=== PATIENT | male | born 1965 | race African-American/Black ===

== ENCOUNTER 2024-10-24 10:25 | Outpatient (REF) | payer MEDICAID, SELFPAY ==
--- OUTSIDE RECORDS SUMMARY | 2024-10-24 10:53 | XMS_ITS | Clinical Summary ---
Author Organization [facility] Address [address] [place] [address] Care Team Providers Care Software Quality Assurance Analyst Name Role Phone Evie Connell NP Primary Care Provider [phone] Source Comments PLEASE NOTE, if this patient is a minor, it may be UNLAWFUL to discuss sensitive information that is contained in these records (such as FAMILY PLANNING, MENTAL HEALTH or SUBSTANCE ABUSE) with the minor patient's parent or other person without the patient's specific authorization.[facility] Allergies No known active allergies Medications lisinopriL 40 mg tabletIndication s:Hypertension, unspecified type Take 1 Tablet by mouth once daily 90 Tablet 1 4 Active atorvastatin (LIPITOR) 20 mg tabletIndication s:Hypercholester olemia Take 1 Tablet by mouth nightly at bedtime 90 Tablet 1 4 Active amLODIPine (NORVASC) 2.5 mg tabletIndication s:Hypertension, unspecified type Take 1 Tablet by mouth once daily 90 Tablet 1 4 Active acetaminophen (TYLENOL) 500 mg tabletIndication s:Chronic pain of left knee Take 1 Tablet by mouth 3 (three) times daily as needed for pain 40 Tablet 3 4 Active diclofenac sodium (VOLTAREN) 1 % gelIndications:C hronic pain of left knee Apply 2 g topically 2 (two) times daily as needed for pain 100 g 3 4 Active doxycycline (VIBRA-TABS) 100 mg tabletIndication s:Chlamydia infection Take 1 Tablet by mouth 2 (two) times daily 14 Tablet 4 Active Active Problems No known active problems Immunizations Immunization Administration Dates Next Due Hep B, Adult/Adol ([id number]/RECOMBIVAX-AD ULT) 01/02/2024 INFLUENZA, SEASONAL, INJECTABLE, PRESERVATIVE FR EE 01/02/2024 TDAP 11/26/2023 Social History Tobacco Use Types Packs/Day Years Used Date Smoking Tobacco: Never Smokeless Tobacco: Never Tobacco Cessation:Counseling Given: Not Answered Alcohol Use Standard Drinks/Week Comments Never 0 (1 standard drink = 0.6 oz pur e alcohol) Social Connections Answer Date Recorded Connectedness 0 12/25/2023 Financial Resource Strain Answer Date R ecorded Financial Resource Strain 0 2023 Stress Answer Date Recorded Stress 0 11/06/2023 Physical Activity Answer Date Recorded Physical Activity 0 11/06/2023 Food Insecurity Answer Date Recorded Food 0 01/03/2024 Transportation Needs Answer Date Record ed Transportation 0 11/06/2023 Housing Stability Answer Date Recorded Housing 0 11/06/2023 Safety and Environment Answer Date Phillip rded Safety 0 11/06/2023 Utilities Answer Date Recorded Utilities 0 11/06/2023 Employment Answer Date Recorded Stress 0 12/25/2023 Sex and Gender Information Value Date Recorded Sex Assigned at Male 11/06/2023 11:00 AM PDT Legal Sex Male 10:27 AM PDT Gender Identity Male 11/06/2023 11:00 AM PDT Sexual Orientation Straight 11/06/2023 11 :00 AM PDT Last Filed Vital Signs Vital Sign Reading Time Taken Comments Blood Pressure 171/94 01/16/2024 2:49 PM EDT Pulse 85 01/16/2024 2:49 PM EDT Temperature 36.6 C (97.9 F) 01/02/2024 12:06 PM EDT Respiratory Rate - - Oxygen Saturation 96% 01/02/2024 12:06 PM EDT Inhaled Oxygen Concentration - - Weight 88.5 kg (195 lb 3.2 oz) 01/16/2024 2:49 P M EDT Height - - Body Mass Index - - Plan of Treatment Health Maintenance Due Date Last Done Comments Anxiety Screening 1965 Dental Perio Charting 1965 Hepatitis B Screening 1965 CT Colonography 2010 Colonoscopy 2010 Flexible Sigmoidoscopy 2010 Imm-Pneumococcal 50+ (1 of 1 - PCV) 2015 Imm-Zoster, Recombinant (1 of 2) 2015 [id number] (1 - season) 2023 Imm-Hepatitis B (2 of 3 - 19 + 3-dose series) 01/30/2024 01/02/2024 Alcohol and Drug Screen 04/09/2024 01/02/20 24, 11/26/2023, 11/26/2023 Depression Annual Screen 04/09/2024 01/02/2024 Diabetes Screening 11/25/2024 11/26/2023, 11/26/2023 Lipid Screening 11/25/2024 11/26/2023 Dental BW 12/01/2024 11/30/2023 Dental Examination 12/01/2024 11/30/2023 Imm-Influenza (#1) 2024 01/02/2024 Annual Wellness (Adult): Ind icated (All Coverage) 01/01/2025 01/02/2024 Tobacco Screening 01/01/2025 01/02/2024, 11/26/2023 Dental Prophy 01/08/2025 01/07/2024 FIT/gFOBT 01/15/2025 01/16/2024 Colorectal Cancer Screening 01/15/2027 Fecal DNA 01/15/2027 01/16/2024 Dental FMX/Pano 12/01/2028 11/30/2023 Imm-DTaP/Tdap/Td (2 - Td or Tdap) 11/25/2033 024 HIV Screening Completed 11/26/2023 Hepatitis C Screening Completed 11/26/2023 Procedures Procedure Name Priority Date/Time Associated Diagnosis Comments COLOGUARD Routine 01/16/2024 2:00 PM EDT Screening for colon cancer PROPHYLAXIS - ADULT Routine 01/07/2024 1 0:00 AM EDT Encounter for dental examination PANORAMIC RADIOGRAPHIC IMAGE Routine 11/30/2023 9:30 AM EDT Caries BITEWINGS - FOUR RADIOGRAPHIC IMAGES Routine 11/30/2023 9:30 AM EDT [facility] COMP ORAL EVALUATION - NEW/ESTABLISHED PATIENT Routine 11/30/2023 9:30 AM EDT Caries HIV 1/2 AG & AB W/RFLX (4TH GEN) Routine 11/26/2023 12:28 PM EDT Encounter for screening for HIV HEPATITIS C AB W/RFLX HCV RNA, QT, RT PCR Routine 11/26/2023 12:28 PM EDT Need for hepatitis C screening test COMPREHENSIVE METABOLIC PANEL Routine 11/26/2023 12:28 PM EDT Hypertension, unspecified type LIPID PANEL Routine 11/26/2023 12:28 PM EDT Hypercholesterolemi a from Last 3 Months or Most Recently Relevant to Health Maintenance Results * COLOGUARD (01/16/2024 2:00 PM EDT) COLOGUARD RESULT REPORTABLE Negative Negative [facility] (CLIA #:[id number]) Comment: NEGATIVE TEST RESULT. A negative Cologuard result indicates a low likelihood that a colorectal cancer (CRC) or advanced adenoma (adenomatous polyps with more advanced pre- malignant features) is present. The chance that a person with a negative Cologuard test has a colorectal cancer is less than 1 in 1500 (negative predictive value >99.9%) or has an advanced adenoma is less than 5.3% (negative predictive value 94.7%). These data are based on a prospective cross-sectional study of 10,000 individuals at average risk for colorectal cancer who were screened with both Cologuard and colonoscopy. (Edilia Cazares et al, N Engl J Med 2014;370(14):6368-9032) The normal value (reference range) for this assay is negative. COLOGUARD RE-SCREENING RECOMMENDATION: Periodic colorectal cancer screening is an important part of preventive healthcare for asymptomatic individuals at average risk for colorectal cancer. Following a negative Cologuard result, the [place] Cancer Society and U.S. Multi-Society Task Force screening guidelines recommend a Cologuard re-screening interval of 3 years. References: [place] [employer] Guideline for Colorectal Cancer Screening: https://www.cancer.org/cancer/bepud-pwjdmz-uitiwf/xwztbdsgr-grygxfdhr-fkfhykf/ac s-rec zachary ns.html.; Gonzalez MONTENEGRO, Belle BILLINGSLEYKlarissa, Colorectal Cancer Screening: Recommendations for Physicians and Patients from the U.S. Multi-Society Task Force on Colorectal Cancer Screening , Am J Gastroenterology 2017; 112:6318-9276. TEST DESCRIPTION: Composite algorithmic analysis of stool DNA-biomarkers with hemoglobin immunoassay. Quantitative values of individual biomarkers are not reportable and are not associated with individual biomarker result reference ranges. Cologuard is intended for colorectal cancer screening of adults of either sex, 45 years or older, who are at average-risk for colorectal cancer (CRC). Cologuard has been approved for use by the U.S. FDA. The performance of Cologuard was established in a cross sectional study of average- risk adults aged 50-84. Cologuard performance in patients ages 45 to 49 years was estimated by sub-group analysis of near-age groups. Colonoscopies performed for a positive result may find as the most clinically significant lesion: colorectal cancer [4.0%], advanced adenoma (including sessile serrated polyps greater than or equal to 1cm diameter) [20%] or non- advanced adenoma [31%]; or no colorectal neoplasia [45%]. These estimates are derived from a prospective cross-sectional screening study of 10,000 individuals at average risk for colorectal cancer who were screened with both Cologuard and colonoscopy. (Edilia Cazares et al, N Engl J Med 2014;370(14):6314-5583.) Cologuard may produce a false negative or false positive result (no colorectal cancer or precancerous polyp present at colonoscopy follow up). A negative Cologuard test result does not guarantee the absence of CRC or advanced adenoma (pre-cancer). The current Cologuard screening interval is every 3 years. ([place] [employer] and U.S. Multi-Society Task Force). Cologuard performance data in a 10,000 patient pivotal study using colonoscopy as the reference method can be accessed at the following location: www.[employer]/results. Additional description of the Cologuard test process, warnings and precautions can be found at www.[employer].com. Stool Stool specimen / Unknown 01/16/2024 2:00 PM EDT 01/17/2024 11:20 AM EDT Evie Connell NP LAB BODY FLUIDS AND STOOL S AMBULATORY Final Result Performing Organization Address [facility]/ZIP Co de Phone Number [employer] [address] CLIA [id number] [place] [address], [facility] (CLIA #:[id number]) [address] [place] [id number] * HEPATITIS C AB W/RFLX HCV RNA, ([id number]) Recommended for screening (11/26/2023 12:28 PM EDT) HEPATITIS C ANTIBODY NON-REACT SILVIA NON-REACT SILVIA 11/26/2023 11:44 PM EDT [facility] Blood Blood / Unknown 11/26/2023 1 2:28 PM EDT 11/26/2023 9:41 PM EDT Narrative [facility] - 11/26/2023 11:46 PM EDT FASTING:NO . HCV antibody was non-reactive. There is no laboratory evidence of HCV infection. . In most cases, no further action is required. However, if recent HCV exposure is suspected, a test for HCV RNA (test code 09973) is suggested. . For additional information please refer to http://education.[employer]/faq/BAH13u1 (This link is being provided for informational/ educational purposes only.) . Evie Connell NP LAB - BLOOD DRAW Final Re sult Performing Organization Address [facility] Co de Phone Number [facility] [address] [place] [address], [facility] [address] [phone] * HIV Ag/Ab 4th Gen (For Screening) (11/26/2023 12:28 PM EDT) HIV AG/AB, 4TH GEN NON-REACT SILVIA NON-REACT SILVIA 11/26/2023 11:44 PM EDT [facility] Blood Blood / Unknown 11/26/2023 1 2:28 PM EDT 11/26/2023 9:43 PM EDT Narrative [facility] [employer] - 11/26/2023 11:46 PM EDT FASTING:NO HIV-1 antigen and HIV-1/HIV-2 antibodies were not detected. There is no laboratory evidence of HIV infection. . PLEASE NOTE: This information has been disclosed to you from records whose confidentiality may be protected by state law. If your state requires such protection, then the state law prohibits you from making any further disclosure of the information without the specific written consent of the person to whom it pertains, or as otherwise permitted by law. A general authorization for the release of medical or other information is NOT sufficient for this purpose. . For additional information please refer to http://education.Antidot/faq/BWF049 (This link is being provided for informational/ educational purposes only.) . . The performance of this assay has not been clinically validated in patients less than 2 years old. . Evie Connell NP LAB - BLOOD DRAW Final Re sult [facility] [address] [place] [address], [facility] [address] [address] * (ABNORMAL) LIPID PANEL (11/26/2023 12:28 PM EDT) [facility] Signature CHOLESTEROL, TOTAL 127 <200 mg/dL 11/26/2023 10:52 PM EDT [facility] HDL CHOLESTEROL 34(L) > OR = 40 mg/dL 11/26/2023 10:52 PM EDT [facility] TRIGLYCERIDES 149 <150 mg/dL 11/26/2023 10:52 PM EDT [facility] LDL-CHOLESTEROL 70 mg/dL (calc) 11/26/2023 10:52 PM EDT [facility] CHOL/HDLC RATIO 3.7 <5.0 (calc) 11/26/2023 10:52 PM EDT [facility] NON-HDL CHOLESTEROL 93 <130 mg/dL (calc) 11/26/2023 10:52 PM EDT [facility] Blood Blood / Unknown 11/26/2023 1 2:28 PM EDT 11/26/2023 9:46 PM EDT Narrative [employer] - 11/26/2023 10:54 PM EDT FASTING:NO Reference range: <100 . Desirable range <100 mg/dL for primary prevention; <70 mg/dL for patients with CHD or diabetic patients with > or = 2 CHD risk factors. . LDL-C is now calculated using the Sara calculation, which is a validated novel method providing better accuracy than the Friedewald equation in the estimation of LDL-C. Dean KHAN et al. KEY. 2013;310(19): 8236-7554 (http://education.dabanniu.com/faq/TJN150) For patients with diabetes plus 1 major ASCVD risk factor, treating to a non-HDL-C goal of <100 mg/dL (LDL-C of <70 mg/dL) is considered a therapeutic option. Evie Connell NP LAB - BLOOD DRAW Final Re sult [facility] [address] [place] [phone], [facility] [address] [place] [phone] * CMP ([id number]) (11/26/2023 12:28 PM EDT) GLUCOSE 80 65 - 139 mg/dL 11/26/2023 10:52 PM EDT [facility] UREA NITROGEN (BUN) 16 7 - 25 mg/dL 11/26/2023 10:52 PM EDT [facility] CREATININE (blood) 0.91 0.70 - 1.30 mg/dL 11/26/2023 10:52 PM EDT [facility] EGFR 98 > OR = 60 mL/min/1. 73m2 11/26/2023 10:52 PM EDT [facility] BUN/CREATININE RATIO SEE NOTE: 6 - 22 (calc) 11/26/2023 10:52 PM EDT [facility] SODIUM 141 135 - 146 mmol/L 11/26/2023 10:52 PM EDT [facility] POTASSIUM 4.3 3.5 - 5.3 mmol/L 11/26/2023 10:52 PM EDT [facility] CHLORIDE 105 98 - 110 mmol/L 11/26/2023 10:52 PM EDT [facility] CARBON DIOXIDE 30 20 - 32 mmol/L 11/26/2023 10:52 PM EDT [facility] CALCIUM 9.8 8.6 - 10.3 mg/dL 11/26/2023 10:52 PM EDT [facility] PROTEIN, TOTAL 6.9 6.1 - 8.1 g/dL 11/26/2023 10:52 PM EDT [facility] ALBUMIN 4.2 3.6 - 5.1 g/dL 11/26/2023 10:52 PM EDT [facility] GLOBULIN 2.7 1.9 - 3.7 g/dL (calc) 11/26/2023 10:52 PM EDT [facility] ALBUMIN/GLOBULI N RATIO 1.6 1.0 - 2.5 (calc) 11/26/2023 10:52 PM EDT [facility] BILIRUBIN, TOTAL 0.6 0.2 - 1.2 mg/dL 11/26/2023 10:52 PM EDT [facility] ALKALINE PHOSPHATASE 86 35 - 144 U/L 11/26/2023 10:52 PM EDT [facility] AST 32 10 - 35 U/L 11/26/2023 10:52 PM EDT [facility] ALT 44 9 - 46 U/L 11/26/2023 10:52 PM EDT [facility] Blood Blood / Unknown 11/26/2023 1 2:28 PM EDT 11/26/2023 9:46 PM EDT Narrative [facility] - 11/26/2023 10:54 PM EDT FASTING:NO . Non-fasting reference interval . Not Reported: BUN and Creatinine are within reference range. . Evie Connell NP LAB - BLOOD DRAW Final Re sult [facility] [address] [address], [facility] [address] [phone] from Last 3 Months or Most Recently Relevant to Health Maintenance [place] Care Teams Software Quality Assurance Analyst Relationship Specialty Start Date End Date Evie Connell NP [address] [place] [phone] PCP - General LEAD SYSTEMS ANALYST Primary Care 11/26/23
[2024-10-24 11:34] LABS: Hematocrit 48.6 % (42.0-52.0); Hemoglobin 16.7 g/dl (14.0-18.0); Mean Corpuscular HGB Conc 34.4 g/dl (31.0-36.0); Mean Corpuscular Hemoglobin 31.2 pg (27.0-33.0); Mean Corpuscular Volume 90.7 fL (80.0-98.0); NRBC Abs Auto 0.000 X10*3/uL (0.0-0.012); NRBC Pct Auto 0.0 /100WBC (0.0-0.2); Platelet Count 323 X10*3/uL (160-400); Red Blood Count 5.36 X10*6/uL (4.60-5.80); White Blood Count 7.5 X10*3/uL (4.8-10.8)
[2024-10-24 12:13] LABS: Hemoglobin A1C 263.4196 umol/L; Total Hemoglobin (HGBA1C) 5404.9988 umol/L
[2024-10-24 12:24] LABS: Alanine Aminotransferase 41 U/L (0-40); Albumin Level 5.1 g/dL (3.5-5.0); Alkaline Phosphatase 78 U/L (39-117); Anion Gap 13 (12-20); Aspartate Amino Transferase 36 U/L (5-37); Blood Urea Nitrogen 19 mg/dL (9-16); Calcium 9.6 mg/dL (8.4-10.2); Carbon Dioxide 30 mmol/L (22-29); Chloride 98 mmol/L (96-108); Cholesterol 130 mg/dL (<200); Estimated Glomerular Filt Rate > 60; HDL Cholesterol 42 mg/dL (>40); Potassium 3.6 mmol/L (3.3-5.1); Sodium 137 mmol/L (135-145); Total Protein 8.7 g/dL (6.5-8.0); Triglycerides 102 mg/dL (<150)
[2024-10-24 12:29] LABS: Free T4 (Free Thyroxine) 1.01 ng/dL (0.71-1.85); Thyroid Stimulating Hormone 1.06 uIU/mL (0.32-4.0)
[2024-10-24 12:32] LABS: HBS Num1 1.08 mIU/mL (0-7.99); HBc Num1 0.06 S/CO (0.00-0.79); HBsAGNum1 0.30 S/CO (0.00-0.99); HIV Num 1 0.05 S/CO (0.00-0.99); Hepatitis B Surface Antigen Negative (Negative); ~HepC Num1 0.19 S/CO (0.00-0.79); ~Hepatitis B Surface Antibody NONREACTIVE (Nonreactive); ~Hepatitis C Antibody Nonreactive (Nonreactive)
[2024-10-24 12:33] LABS: ~Hepatitis A Antibody IgG 9.19 S/CO (0.00-0.99)
[2024-10-24 13:22] LABS: CT PCR Urine NOT DETECTED (Not Detect.); NG PCR Urine NOT DETECTED (Not Detect.)
[2024-10-27 16:49] LABS: TS Negative Control Passed; TS Panel A 0; TS Panel B 1; TS Positive Control Passed; TSpotTB Negative (Negative)
== END 2024-10-24 10:26 | disposition home or self-care (01) ==
LOC: HO.HHCL 10:25
PROVIDERS: Visit Provider Family Medicine
DX: I10 Essential (primary) hypertension (principal); E78.49 Other hyperlipidemia
CPT/HCPCS: 36415; 80048; 80061; 80076; 82043; 82306; 82570; 83036; 84439; 84443; 85027; 86481; 86592; 86704; 86706; 86708; 86803; 87340; 87389; 87491; 87591